=== PATIENT | male | born 1935 | race Caucasian/White ===

== ENCOUNTER 2017-07-13 23:05 | Inpatient (IN) | payer MEDICARE ==
[2017-07-13 23:48] LABS: BASOPHILE ABSOLUTE 0.1 Th/cumm (0-0.2); EOSINOPHILE ABSOLUTE 0.1 Th/cmm (0.1-0.4); HEMATOCRIT 32.3 % (41.0-60); HEMOGLOBIN 11.1 gm/dL (12-16); LYMPHOCYTE ABSOLUTE 1.7 Th/cmm (1.5-3.0); MEAN CELL VOLUME 87.1 fl (80-99); MEAN CORPUSCULAR HEMOGLOBIN 30.1 pg (27.0-31.0); MEAN CORPUSCULAR HGB CONC 34.5 pg (28.0-36.0); MEAN PLATELET VOLUME 6.8 fl; MONOCYTE ABSOLUTE 2.4 Th/cmm (0.3-1.0); NEUTROPHILE ABSOLUTE 10.4 Th/cmm (1.8-8.0); PLATELET COUNT 597 Th/cmm (150-400); RED CELL DISTRIBUTION WIDTH 15.2 % (11.5-20.0)
[2017-07-13 23:49] LABS: % LYMPHOCYTES 11.3 % (20.0-50.0); % NEUTROPHILS 71.3 % (40.0-80.0); WHITE BLOOD COUNT 14.7 Th/cmm (4.8-10.8)
[2017-07-13 23:50] LABS: % BASOPHILS 0.4 % (0.0-2.0)
--- NOTE | 2017-07-13 23:52 | ED Physician Chart ---
ED Chief Complaint/HPI - Patient Information Date Seen:: 07/13/17 Time Seen:: 23:15 Chief Complaint:: G-TUBE MALFUNCTIONING History of Present Illness:: THIS IS AN 81 YO CHRONICALLY MALE SENT FROM THE LONG-TERM BECAUSE OF G-TUBE PLACEMENT. THIS PATIENT HAS BEEN VOMITING AND CURRENT HAS SOME MILD ABDOMINAL DISTENTION. HE HAS PANCREATIC DISEASE. Allergies:: Allergies Allergy/AdvReac Type Severity Reaction Status Date / Time acetaminophen [From Vicodin] Allergy Verified 07/13/17 23:25 hydrocodone [From Vicodin] Allergy Verified 07/13/17 23:25 Penicillins [PCN] Allergy Verified 07/13/17 23:25 Vitals:: Vital Signs - 8 hr 07/13/17 23:05 Temp 98.2 F HR 145 RR 20 BP 103/60 O2 Sat % 97 Historian:: Patient, Family Member (SON), Medical Records Review:: Nurse's Note Reviewed ED Review of Systems - Review of Systems General/Constitutional: Fever, No chills, No weight loss, Weakness, No diaphoresis, No edema, No loss of appetite Skin: No skin lesions, No rash, No bruising Head: No headache, No light-headedness Eyes: No loss of vision, No pain, No diplopia ENT: No earache, No nasal drainage, No sore throat, No tinnitus Neck: No neck pain, No swelling, No thyromegaly, No stiffness, No mass noted Cardio Vascular: No chest pain, No palpitations, No PND, No orthopnea, No edema , other (FAST HEART RATE 152) Pulmonary: No SOB, No cough, No sputum, No wheezing GI: Nausea, Vomiting, No diarrhea, Pain, No melena, No hematochezia, No constipation, No hematemesis G/U: No dysuria, No frequency, No hematuria Musculoskeletal: No bone or joint pain, No back pain, No muscle pain Endocrine: No polyuria, No polydipsia Psychiatric: No prior psych history, No depression, No anxiety, No suicidal ideation Hematopoietic: No bruising, No lymphadenopathy Allergic/Immuno: No urticaria, No angioedema Neurological: No syncope, No focal symptoms, No weakness, No paresthesia, No headache, No seizure, No dizziness, No confusion, No vertigo ED Past Medical History - Past Medical History Obtainable: Yes Past Medical History: HTN, CVA/TIA, DVT/PE Family History: None Social History: Non Smoker, No Alcohol, No Drug Use, Care Facility Surgical History: PEG/GTube, other (AORTIC ANEURYSM SURGERY, ) Psychiatricy History: Dementia Family Medical History - Family Member Mother History Unknown: Yes Son Living Status: Still Living ED Physical Exam - Physical Examination General/Constitutional: Awake, Well-developed, well-nourished, Alert, No distress, GCS 15, Non-toxic appearing, Ambulatory Head: Atraumatic Eyes: Lids, conjuctiva normal, PERRL, EOMI Skin: Nl inspection, No rash, No skin lesions, No ecchymosis, Well hydrated, No lymphadenopathy ENMT: External ears, nose nl, Nasal exam nl, Lips, teeth, gums nl Neck: Nontender, Full ROM w/o pain, No JVD, No nuchal rigidity, No bruit, No mass, No stridor Respiratory: Nl effort/Exclusion, Clear to Auscultation, No Wheeze/Rhonchi/Rales Cardio Vascular: RRR, No murmur, gallop, rubs, NL S1 S2 Other Cardio Vascular comments:: TACHYCARDIA GI: No tenderness/rebounding/guarding (THERE IS DIFFUSE TENDERNESS OF THE ABDOMEN.), No organomegaly, No hernia, Normal BS's, Nondistended (HIS ABDOMEN IS SLIGHTLY DISTENDED WITH G-TUBE IN PLACE. ), No mass/bruits, No McBurney tenderness : No CVA tenderness Extremities: No tenderness or effusion, Full ROM, normal strength in all extremities, No edema, Normal digits & nails Other Extremities comments:: THERE IS GENERALIZE MUSCLE WASTING. Neuro/Psych: Alert/oriented, DTR's symmetric, Normal sensory exam, Normal motor strength, Judgement/insight normal, Mood normal, Normal gait, No focal deficits Misc: Normal back, No paraspinal tenderness ED Assessment - Assessment General Assessment: G-TUBE MALFUNCTIONING DEHYDRATION ELEVATED WHITE COUNT ED Septic Shock - . Is Septic Shock (SBP<90, OR Lactate>4 mmol\L) present?: No - <6hrs of presentation: Vital Signs: Vital Signs - 8 hr 07/13/17 23:05 Temp 98.2 F HR 145 RR 20 BP 103/60 O2 Sat % 97 ED Reassessment (Disposition) - Reassessment Reassessment Condition:: Improved - Diagnosis Diagnosis:: G-TUBE MALFUNCTIONING LEUCOCYTOSIS - Patient Disposition Discharge/Transfer:: Acute Care w/in this hosp Condition at Disposition:: Improved ED Discharge Plan - Patient Disposition Admit/Discharge/Transfer: Acute Care w/in this hosp
[2017-07-13] MEDS ORDERED: Sodium Chloride 0.9% 1,000 ML IV ONE (23:54)
[2017-07-13 23:55] LABS: INR 1.18 (0.5-1.4); PROTHROMBIN TIME (TEST) 12.4 SECONDS (9.5-11.5)
[2017-07-14 00:17] LABS: ANION GAP 10.6 (7.0-16.0); BUN - UREA NITROGEN 22 mg/dL (7-25); CARBON DIOXIDE 22.4 mEq/L (21.0-31.0); CHLORIDE 98 mEq/L (98-107); CREATININE - SERUM 0.5 mg/dL (0.7-1.3); GLUCOSE 96 mg/dL (70-105); SODIUM SERUM 127 mEq/L (136-145)
[2017-07-14 00:18] LABS: ALB/GLOB RATIO 0.5 (1.0-1.8); ALBUMIN 2.3 gm/dL (4.2-5.5); ALKALINE PHOSPHATASE 149 U/L (34-104); BILIRUBIN,TOTAL 0.4 mg/dL (0.3-1.0); CALCIUM SERUM 8.7 mg/dL (8.6-10.3); SGOT 47 U/L (13-39); SGPT/ALT 49 U/L (7-52); TOTAL PROTEIN,SERUM 6.6 gm/dL (6.0-8.3)
[2017-07-14] MEDS ORDERED: Lactated Ringer 1,000 ML IV ONE ×2 (00:36→01:32)
[2017-07-14] MEDS ORDERED: IOHEXOL 300mgI/mL 100 ML VIAL ONE (01:02)
[2017-07-14] MEDS ORDERED: Albuterol Nebulizer 2.5mg/3mL HHN PRN (01:33)
[2017-07-14] MEDS ORDERED: Sodium Chloride 0.9% 1,000 ML IV ONE (01:37)
[2017-07-14] MEDS ORDERED: Diltiazem 30 mg Tab GT SCH (01:40)
[2017-07-14] MEDS: Levofloxacin 750mg/150mL 750 MG/150 ML BAG IV SCH (03:05)
[2017-07-14 03:07] LABS: URINE MICROSCOPIC INDICATED? YES; URINE SOURCE FOLEY PORT
[2017-07-14 03:19] LABS: URINE BILIRUBIN NEGATIVE (NEGATIVE); URINE BLOOD MODERATE (NEGATIVE); URINE GLUCOSE (UA) NEGATIVE (NEGATIVE); URINE KETONE NEGATIVE (NEGATIVE); URINE LEUKOCYTE ESTERASE NEGATIVE (NEGATIVE); URINE NITRATE NEGATIVE (NEGATIVE); URINE PROTEIN TRACE mg/dL (NEGATIVE); URINE UROBILINOGEN 0.2 E.U./dL (0.2 - 1.0)
[2017-07-14 03:20] LABS: URINE CLARITY CLOUDY (CLEAR); URINE COLOR RED; URINE EPITHELIAL CELLS OCCASIONAL /lpf (FEW); URINE RBC 50-100 /hpf (0-5); URINE WBC 0-2 /hpf (0-5)
[2017-07-14 03:21] LABS: URINE BACTERIA FEW /hpf (NONE SEEN)
[2017-07-14] MEDS ORDERED: Diltiazem 5 mg/mL 5mL Vial IVP ONE (05:36)
[2017-07-14] MEDS ORDERED: Pneumococcal Vaccine 0.5 mL Vial IM ONE (06:04)
[2017-07-14] MEDS: Albuterol Nebulizer 2.5mg/3mL HHN SCH ×3 (06:41→18:30)
--- NOTE | 2017-07-14 08:54 | History and Physical ---
History of Present Illness - HPI Vital Signs: Last Vital Signs Temp 97.5 F 07/14/17 07:51 Pulse 618 07/14/17 08:01 Resp 18 07/14/17 07:51 BP 102/63 07/14/17 07:51 Pulse Ox 94 07/14/17 07:51 Family Medical History - Family Member Mother History Unknown: Yes Son History Unknown: Yes Living Status: Still Living - Medications Home Medications: Home Medication Medication Instructions Recorded Type Apixaban [Eliquis] 5 mg JT DAILY 07/14/17 History Calcium Carbonate/Vitamin D2 1 tab JT DAILY 07/14/17 History [Nature's Blend Oyster Shell Calcium D 250 mg-] Dextran 70/Hypromellose 1 each EACH EYE TID 07/14/17 History [Artificial Tears] Diltiazem HCl [Diltiazem 12Hr ER] 60 mg JT Q8HR 07/14/17 History Ferrous Sulfate 5 ml JT DAILY 07/14/17 History Hydralazine HCl 25 mg JT Q6HR 07/14/17 History Insulin Aspart Sliding Scale See Protocol SUBQ ACHS 07/14/17 History [NovoLOG INSULIN SLIDING SCALE] Levalbuterol HCl [Xopenex] 0.63 mg IH Q4HR PRN 07/14/17 History Magnesium Hydroxide [Milk of 30 ml JT DAILY 07/14/17 History Magnesia] Metoprolol Succinate 25 mg JT Q6HR 07/14/17 History Tramadol HCl [Ultram] 50 mg JT Q6HR PRN 07/14/17 History Vit C/Ascorbate Ca/Ascorb Sod 500 mg JT DAILY 07/14/17 History [Vitamin C 500 mg/15 ml Liquid] - Allergies Allergies/Adverse Reactions: Allergies Allergy/AdvReac Type Severity Reaction Status Date / Time acetaminophen [From Vicodin] Allergy Verified 07/13/17 23:25 hydrocodone [From Vicodin] Allergy Verified 07/13/17 23:25 Penicillins [PCN] Allergy Verified 07/13/17 23:25 - Lab Results All Lab Results last 24 hours: Laboratory Results - last 24 hr 07/14/17 07/14/17 02:10 02:50 Whole Bld Lactic Acid 2.19 H* Urine Source [place] Urine Color RED Urine Clarity CLOUDY Urine pH 7.0 Ur Specific [place] <= 1.005 Urine Protein TRACE Urine Glucose (UA) NEGATIVE Urine Ketones NEGATIVE Urine Blood MODERATE H Urine Nitrate NEGATIVE Urine Bilirubin NEGATIVE Urine Urobilinogen 0.2 Ur Leukocyte Esterase NEGATIVE Urine RBC 50-100 H Urine WBC 0-2 Ur Epithelial Cells OCCASIONAL Urine Bacteria FEW
--- NOTE | 2017-07-14 09:07 | General Progress Note ---
Subjective - Review of Systems Service Date: 07/14/17 Events since last encounter: had ruptured AAA repair [facility] 3 months ago had fever, pain both flanks CT scan possible abscess both flanks, GB sludge Plan: obtain op reports TAMY, blood culture, CT aspiration of suspected abscess Graft infection, if used for repair of AAA can be disastrous Objective - Results Result Diagrams: 07/13/17 23:30 07/13/17 23:30 Recent Labs: Laboratory Last Values WBC 14.7 Th/cmm (4.8-10.8) H 07/13/17 23:30 RBC 3.70 Mil/cmm (3.80-5.80) L 07/13/17 23:30 Hgb 11.1 gm/dL (12-16) L 07/13/17 23:30 Hct 32.3 % (41.0-60) L 07/13/17 23:30 MCV 87.1 fl (80-99) 07/13/17 23:30 MCH 30.1 pg (27.0-31.0) 07/13/17 23:30 MCHC Differential 34.5 pg (28.0-36.0) 07/13/17 23:30 RDW 15.2 % (11.5-20.0) 07/13/17 23:30 Plt Count 597 Th/cmm (150-400) H 07/13/17 23:30 MPV 6.8 fl 07/13/17 23:30 Neutrophils % 71.3 % (40.0-80.0) 07/13/17 23:30 Lymphocytes % 11.3 % (20.0-50.0) L 07/13/17 23:30 Monocytes % 16.0 % (2.0-10.0) H 07/13/17 23:30 Eosinophils % 1.0 % (0.0-5.0) 07/13/17 23:30 Basophils % 0.4 % (0.0-2.0) 07/13/17 23:30 PT 12.4 SECONDS (9.5-11.5) H 07/13/17 23:30 INR 1.18 (0.5-1.4) 07/13/17 23:30 PTT (Actin FS) 36.6 SECONDS (26.0-38.0) 07/13/17 23:30 Sodium 127 mEq/L (136-145) L 07/13/17 23:30 Potassium 4.0 mEq/L (3.5-5.1) 07/13/17 23:30 Chloride 98 mEq/L (98-107) 07/13/17 23:30 Carbon Dioxide 22.4 mEq/L (21.0-31.0) 07/13/17 23:30 Anion Gap 10.6 (7.0-16.0) 07/13/17 23:30 BUN 22 mg/dL (7-25) 07/13/17 23:30 Creatinine 0.5 mg/dL (0.7-1.3) L 07/13/17 23:30 Est GFR ( Amer) TNP 07/13/17 23:30 Est GFR (Non-Af Amer) TNP 07/13/17 23:30 BUN/Creatinine Ratio 44.0 07/13/17 23:30 Glucose 96 mg/dL (70-105) 07/13/17 23:30 Whole Bld Lactic Acid 2.19 mmol/L (0.60-1.99) H* 07/14/17 02:10 Calcium 8.7 mg/dL (8.6-10.3) 07/13/17 23:30 Total Bilirubin 0.4 mg/dL (0.3-1.0) 07/13/17 23:30 AST 47 U/L (13-39) H 07/13/17 23:30 ALT 49 U/L (7-52) 07/13/17 23:30 Alkaline Phosphatase 149 U/L (34-104) H 07/13/17 23:30 Troponin I 0.02 ng/mL (0.01-0.05) 07/13/17 23:30 Total Protein 6.6 gm/dL (6.0-8.3) 07/13/17 23:30 Albumin 2.3 gm/dL (4.2-5.5) L 07/13/17 23:30 Globulin 4.3 gm/dL 07/13/17 23:30 Albumin/Globulin Ratio 0.5 (1.0-1.8) L 07/13/17 23:30 Urine Source [place] 07/14/17 02:50 Urine Color RED 07/14/17 02:50 Urine Clarity CLOUDY (CLEAR) 07/14/17 02:50 Urine pH 7.0 (4.6 - 8.0) 07/14/17 02:50 Ur Specific [place] <= 1.005 (1.005-1.030) 07/14/17 02:50 Urine Protein TRACE mg/dL (NEGATIVE) 07/14/17 02:50 Urine Glucose (UA) NEGATIVE mg/dL (NEGATIVE) 07/14/17 02:50 Urine Ketones NEGATIVE mg/dL (NEGATIVE) 07/14/17 02:50 Urine Blood MODERATE (NEGATIVE) H 07/14/17 02:50 Urine Nitrate NEGATIVE (NEGATIVE) 07/14/17 02:50 Urine Bilirubin NEGATIVE (NEGATIVE) 07/14/17 02:50 Urine Urobilinogen 0.2 E.U./dL (0.2 - 1.0) 07/14/17 02:50 Ur Leukocyte Esterase NEGATIVE (NEGATIVE) 07/14/17 02:50 Urine RBC 50-100 /hpf (0-5) H 07/14/17 02:50 Urine WBC 0-2 /hpf (0-5) 07/14/17 02:50 Ur Epithelial Cells OCCASIONAL /lpf (FEW) 07/14/17 02:50 Urine Bacteria FEW /hpf (NONE SEEN) 07/14/17 02:50 - Physical Exam Vitals and I&O: Vital Signs Temp 97.5 F 07/14/17 07:51 Pulse 618 07/14/17 08:01 Resp 18 07/14/17 07:51 BP 102/63 07/14/17 07:51 Pulse Ox 94 07/14/17 07:51 Intake & Output 07/13/17 07/14/17 07/14/17 18:59 06:59 18:59 Intake Total 2200 Balance 2200 Intake: Intake, IV Amount 2200 Levofloxacin 750mg/150mL 150 750 mg In 150 ml @ 100 mls/hr IV Q24HR [facility] Rx#: [id number] Active Medications: Current Medications Acetaminophen (Tylenol) 650 mg PO Q6H PRN PRN Reason: HEADACHE/TEMP ABOVE 100F Stop: 09/12/17 01:29 Albuterol Sulfate (Albuterol 2.5mg/3ml Neb Ud) 2.5 mg HHN Q6HRT [facility] Stop: 09/12/17 06:59 Last Admin: 07/14/17 06:41 Dose: 2.5 mg Albuterol Sulfate (Albuterol 2.5mg/3ml Neb Ud) 2.5 mg HHN Q6HRT PRN PRN Reason: sob Stop: 09/12/17 06:59 Docusate Sodium (Colace) 100 mg PO BID PRN PRN Reason: Constipation Stop: 09/12/17 01:30 Levofloxacin (Levaquin Pb) 750 mg in 150 mls @ 100 mls/hr IV Q24HR [facility] Stop: 09/12/17 01:44 Last Infusion: 07/14/17 04:35 Dose: Infused Amiodarone HCl 450 mg/ (Dextrose) 259 mls @ 0 mls/hr IV TITR [facility]; Titrate PRN Reason: Protocol Stop: 09/12/17 07:14 Ondansetron HCl (Zofran) 4 mg IVP Q6H PRN PRN Reason: Nausea / Vomiting Stop: 09/12/17 01:30
--- NOTE | 2017-07-14 09:22 | Diagnostic Imaging Report ---
CT abdomen and pelvis with intravenous contrast Indication: Abdominal pain Comparison: None, Technique: Axial images were obtained from the lung bases to the bilateral proximal femurs with IV contrast. Coronal reconstructions were made. total DLP: 560, CTDI10.4 FINDINGS: There is a moderate-sized left effusion and small right effusion with bibasal passive atelectatic and consolidative changes. There is mild fluid distention of the esophagus with small hiatal hernia noted. Moderate generalized ascites is noted. No focal hepatic lesions. Distended gallbladder is seen with sludge. No focal splenic lesions. Multiple pancreatic gland calcifications are noted there are small pockets of gas seen along the anterior aspect of the pancreas, location difficult to determine. Percutaneous gastric feeding tube is noted with tip terminating along the jejunal portion. No focal adrenal lesions. There is a 6.1 x 4 cm right renal cyst. There is also moderate to severe right hydronephrosis with probable additional adjacent renal cysts seen along the medial aspect measuring 4.5 cm. Right hydroureter is noted. There is marked enlargement of the right psoas muscle with abnormal areas of low density. This area measures up to 7.2 cm craniocaudal x 6 cm transverse demonstrates irregularity surrounding inflammatory changes. Additional collection is seen more inferiorly extending to the right iliac this muscle measuring 7.4 x 4 cm. Diverticulosis is noted. Inflammatory changes seen in the pelvis with nonspecific fluid-filled loops of small bowel. An infrarenal IVC filter is noted. Diffuse atherosclerotic vascular disease is noted with areas of aneurysmal dilatation of the infrarenal abdominal aorta measuring up to 4.5 x 3.6 cm. Anasarca is noted. Diffuse Degenerative changes of the spine and pelvis are noted. The appendix is not well-visualized. Small fat-containing left inguinal hernia is noted. IMPRESSION: Moderate generalized abdominal and pelvic ascites. Right-sided moderate to severe hydronephrosis. This may be secondary to enlargement of the right psoas muscle possibly psoas abscess with this area measuring 7.2 x 6 cm. There is also additional heterogeneous area probable additional abscess along the right pelvic region along the right iliac is muscle measuring 7.4 x 4 cm. This may extend to the more superior fluid collection. Other less likely etiologies would include a hematoma. Percutaneous gastric feeding tube with tip of the catheter within the jejunum. Pancreatic atrophy and calcifications. Small pockets of gas are seen anterior to pancreas. Findings are indeterminate and are probably within the adjacent small bowel loops. These are less likely extraluminal, however, clinical correlation and follow-up is recommended. Diffuse atherosclerosis with aneurysm dilatation of the infrarenal dominator measuring up to 4.5 x 2.8 cm. Diverticulosis. Gallbladder debris and possible small gallstones. Distended gallbladder is also noted. Ultrasound would further clarify. Generalized inflammatory changes throughout the mesentery which may be related to patient's abdominal ascites. Anasarca Moderate left effusion and small right effusion and bibasilar passive atelectatic and consolidative changes. IVC filter noted. Right renal cysts. Small fat-containing left inguinal hernia.
[2017-07-14] MEDS ORDERED: Morphine Sulfate 4 mg/mL 1mL Syr IVP PRN (09:37)
--- NOTE | 2017-07-14 10:43 | Consultation ---
DATE OF CONSULTATION: 07/14/2017 SURGICAL CONSULT REFERRING PHYSICIAN: Dr. Coyle REASON FOR CONSULTATION: Abdominal pain. Thank you for referring this patient to me. This is an 81-year-old male who underwent repair of possible ruptured abdominal aortic aneurysm 3 months ago at [facility]. The anuerysm was fresected, patient did not wake up for about a week postop. He vomited and could not swallow and has a G-tube in place. He started having pain in both flanks several days ago and developed a fever on admission. PRIOR HISTORY: He claims he took medication for hypertension, but not for diabetes or high cholesterol. He quit smoking in high school. LABORATORY STUDIES: On this admission, WBC was 14,700 with hemoglobin of 11.1, platelet count is normal. PT was 12.4. The lactic acid is elevated to 2.32. A CT scan of the abdomen shows a possible abscess and fluid collection in both flanks measuring 6 x 7 x 5.7 x 9.7 on the right side and 8 x 2 x 6.2 x 2.2 on the left side, iliopsoas region. There is also sludge in the gallbladder. PHYSICAL EXAMINATION: Scar is well-healed in the midline. There is tenderness in both flanks. Femoral pulses are strong. IMPRESSION: 1. Possible postop abscess, iliopsoas region. 2. Possible infection of the graft for the AAA repair. 3. Gallbladder sludge. 4. Dysphagia, etiology? RECOMMENDATIONS: Suggest ID consult. We will do blood culture and send the patient for CT aspiration of the abscess or fluid collection in both flanks. The patient is warned about the dire consequences of an infected graft if this was used. The patient has an IVC filter as well noted on the CAT scan. JOB# [id number] [id number]
[2017-07-14] MEDS ORDERED: Potassium Chloride 20 mEq ER Tab PO PRN (10:57)
[2017-07-14] MEDS ORDERED: Sodium Chloride 0.9% 1,000 ML IV SCH (11:00)
[2017-07-14] MEDS: D5-0.9%NS 1,000 ML IV SCH ×2 (11:20→21:22)
[2017-07-14] MEDS: Diltiazem 30 mg Tab JT SCH ×2 (11:44→20:31)
[2017-07-14] MEDS: INSULIN ASPART SLIDING SCALE 100 UNITS/ML UNIT SUBQ SCH ×3 (11:47→20:32)
[2017-07-14] MEDS ORDERED: DILTIAZEM HCL 60 MG JT SCH (13:00)
[2017-07-14] MEDS ORDERED: Non-Formulary Item 1 EA (Dextran 70/Hypromellose [Artificial Tears] 1 EACH) EACH EYE SCH (14:00)
[2017-07-14] MEDS: Polyvinyl Alcohol Ophth Soln 15 mL Bottle EACH EYE SCH ×2 (14:54→20:31)
--- NOTE | 2017-07-14 15:33 | History & Physical ---
ADMIT DATE: 07/14/2017 CHIEF COMPLAINT: Abdominal pain with associated nausea and vomiting. HISTORY OF PRESENT ILLNESS: This is an 81-year-old gentleman who presented from [facility] with a past medical history of dysphagia, pancreatic pseudocyst, GE junction obstruction, presented to the hospital with complaint of abdominal pain, nausea and vomiting. The patient is currently a jail patient at [facility], who started to experience abdominal pain with associated nausea and vomiting. A KUB was ordered and was negative at that time. Over the last couple days, the vomiting became so severe that he was unable to tolerate tube feeds and was sent to the hospital for further workup. Approximately one month ago, the patient was admitted to the [facility] for a ruptured abdominal aortic aneurysm. The patient had an EGD performed that revealed a Schatzki's ring and underwent endoscopic therapy to remove the ring. The patient tolerated procedure well without complication. He has an extensive history of pancreatic pseudocyst and dysphagia. He is a long-term patient at [facility]. [facility] has found approximately 2 months ago that he had necrotizing pancreatitis and an NG tube was placed at that time. He had a PEG tube that was removed and a G-tube was placed. The patient started his tube feeds and he was able to tolerate the Peptamen without complication. However, over the last several days, the patient has been unable to do so. 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 PAST SURGICAL HISTORY: G-tube placement, endoscopic removal of Schatzki ring as well as endoscopic removal of pancreatic pseudocyst and repair of the abdominal aortic aneurysm. MEDICATIONS: Reviewed and reconciled. ALLERGIES: PENICILLIN, RASH. TYLENOL AND HYDROCODONE, rash. FAMILY HISTORY: Unremarkable. SOCIAL HISTORY: Denies tobacco, drugs, alcohol. Currently, is living at [facility]. REVIEW OF SYSTEMS: GENERAL: Denies fevers, chills, night sweats. HEENT: Admits to difficulty swallowing, painful swallowing, and no decreased vision. CARDIOVASCULAR: Denies chest pain, shortness of breath, or palpitations. RESPIRATORY: Denies chest pain, shortness of breath, or cough. ABDOMEN: Abdominal pain with associated nausea and vomiting. MUSCULOSKELETAL: Muscle strength testing, bilateral upper and lower extremities, 3/5. SKIN: No rashes or open wounds. The patient appears cachectic. PSYCHIATRIC: No psychosis or hallucinations. PHYSICAL EXAMINATION: VITAL SIGNS: Pulse is 145, blood pressure is 125/75, respirations 18, temperature is 97.6. GENERAL: NAD, appears to be cachectic and very weak. HEENT: PERRLA, EOMI. NECK: Supple. Trachea midline. CARDIOVASCULAR: Regular rate and rhythm. LUNGS: Decreased breath sounds bilaterally with intermittent rhonchi. No wheezing or rales. ABDOMEN: Soft, mildly distended abdomen. G-tube is intact. Hypoactive bowel sounds. SKIN: No rash or open wounds. MUSCULOSKELETAL: Muscle strength testing 4/5. PSYCHIATRIC: No psychosis or hallucinations. LABORATORY DATA: White blood cell count is 14.7, hemoglobin 11.1. The sodium is 127. Lactic acid is 2.3 and followup is 2.1. Albumin is 2.3. ASSESSMENT: Possible abdominal abscess 7.4 x 4 along the right iliac muscle, bilateral pleural effusions, small hiatal hernia, gallbladder with sludge, multiple pancreatic calcifications and pseudocyst. There is a right renal cyst 6.1 x 4 with severe right-sided hydronephrosis and right hydroureter. IVC filter in place, diverticulosis, SVT, vasomotor nephropathy. PLAN: Admit to the ICU. Dr. Elizalde has been consulted. Hold tube feeds. The patient was started on amiodarone drip due to SVT. IV Levaquin and vancomycin have been started. Zofran for nausea or vomiting, morphine for severe pain and bronchodilators as needed. A urinalysis was negative. A chest x-ray is currently pending. Dr. Elizalde is waiting for the prior surgical records to be sent him prior to doing any type of surgical procedure. High rate IV fluids due to dehydration. JOB# [id number]
[2017-07-14] MEDS ORDERED: Metoprolol tartrate 1 mg/ml 5mL Amp IV SCH (17:30)
[2017-07-14] MEDS ORDERED: Metoprolol tartrate 1 mg/ml 5mL Amp IV ONE ×2 (17:39→18:15)
[2017-07-15] MEDS: Albuterol Nebulizer 2.5mg/3mL HHN SCH ×4 (01:13→18:48)
[2017-07-15] MEDS ORDERED: Diltiazem 5 mg/mL 5mL Vial IVP ONE (01:34)
[2017-07-15] MEDS ORDERED: Metoprolol tartrate 1 mg/ml 5mL Amp IV PRN (02:20)
--- NOTE | 2017-07-15 03:02 | Consultation ---
DATE OF CONSULTATION: 07/14/2017 INPATIENT GASTROINTESTINAL CONSULTATION REFERRING PHYSICIAN: Dr. Coyle. REASON FOR CONSULTATION: Malfunctioning G-tube, dysphagia. HISTORY OF PRESENT ILLNESS: This is an 81-year-old male sent in from a residential because his G-tube has been clogged and not working. The patient is not a very reliable historian. He denies having any GI bleeding, melena, hematochezia, hematemesis, or coffee ground emesis. He denies having any nausea, vomiting, although the records in the ER suggested he has some vomiting. He denies having abdominal pain. PAST MEDICAL HISTORY: Hypertension, stroke, TIA, DVT, PE, dementia, abdominal aortic aneurysm. PAST SURGICAL HISTORY: PEG tube placement and aortic aneurysm surgery. FAMILY HISTORY: Noncontributory. SOCIAL HISTORY: Resident of skilled facility. ALLERGIES: ACETAMINOPHEN, HYDROCODONE, PENICILLIN. CURRENT MEDICATIONS: Tylenol, amiodarone, Colace, Levaquin, Zofran. REVIEW OF SYSTEMS: Ten point review of system was very limited because of the patient is a poor historian. PHYSICAL EXAMINATION: VITAL SIGNS: Temperature 97.5, breathing 18, pulse of 150, blood pressure 102/63, satting 94%. GENERAL: No apparent distress, well-developed, well-nourished. Eyes are anicteric. Normal conjunctivae. HEENT: Normocephalic, atraumatic. Moist mucous membranes. NECK: Soft, supple. CHEST: Clear, normal effort. CARDIOVASCULAR: Regular rate and rhythm. ABDOMEN: Soft, nontender, nondistended with G-tube with old scars. SKIN: Warm, dry. EXTREMITIES: Reveal no cyanosis. PSYCHOLOGICAL: Awake. LABORATORY DATA: Show white count 14.7, hemoglobin 11.1, platelets 597. INR is 1.18. Total bilirubin 0.4, AST 47, ALT 49, alkaline phosphatase 149. IMPRESSION: An 81-year-old male with malfunctioning G-tube and dysphagia, feeding tube may need to be replaced, it was confusing. The patient states that he thinks that it is the J-tube, although this does not look typical of that. Imaging studies can be done to determine the location of this tube whether it is in the stomach or in the small bowel. Once it is as determined he can have the G-tube removed and replaced. His LFTs are also elevated of unclear etiology. CT scan can also be helpful looking at the liver as well. PLAN: 1. CT abdomen and pelvis. 2. Follow LFTs. 3. We will consider the routes to change the G-tube. 4. Get records of the G-tube placement from [facility]. Thank you for allowing me to participate. Please call me if any questions. JOB# [id number]
--- NOTE | 2017-07-15 03:17 | Consultation ---
DATE OF CONSULTATION: 07/14/2017 HISTORY OF PRESENT ILLNESS: This 81-year-old male was seen and examined at the courtesy of Dr. Coyle. The patient was admitted here with fast heart rate and sepsis, was evaluated in emergency room, was found to have lactic acidosis, leukocytosis, and hyponatremia. He also had G-tube malfunction. He also has an abdominal aortic aneurysm. He has been having supraventricular tachycardia, heart rate about 150 beats per minute. Apparently, some Cardizem was given to him with no effect. Lopressor was given 5 mg IV with transient reduction in the heart rate. Probably, it is regular QRS complexes, probably it is atrial flutter with 2:1 AV conduction, was in sinus tachycardia, but I doubt it. PAST MEDICAL HISTORY: Not much available from the patient. FAMILY HISTORY, SOCIAL HISTORY, AND REVIEW OF SYSTEMS: Not much available from the patient. On direct questioning him, the patient did not complain of any chest pain and no shortness of breath, no history of cough, no history of fever. No history of hemoptysis. PHYSICAL EXAMINATION: VITAL SIGNS: Heart rate is about 150, blood pressure is about 124/70. SKIN: Normal. HEENT: Head: Normocephalic. Eyes: Conjunctivae were pink. There is no icterus in the eyes. Pupils equally reacting to light. NECK: There was no increased jugular venous distention, no thyromegaly, no lymphadenopathy. Carotids equal on both sides. CHEST: Bilaterally symmetrical, moved well with respiration. Respiratory movements equal on both sides. Trachea is central. There is note to percussion. Breath sounds: Few basilar rales. Diminished air entry at the bases. CARDIOVASCULAR SYSTEM: PMI not well localized and no pulsation or thrill. No parasternal heave. S1 normal, S2 physiologic. There was no S3, no rub. ABDOMEN: Soft, bowel sounds present. EXTREMITIES: No calf tenderness. DATA: The patient had a CT of the abdomen and pelvis, which reveals finding of likely present abscess collection. Hematoma is another possibility. Bilateral pleural effusion, greater on the left. Abdominal aortic aneurysm, 4.5 cm. Atherosclerosis of abdominal aorta and iliac arteries. Moderate pelvic ascites, cirrhosis of liver. Lactic acid was 2.32. WBC count was 14.7, hemoglobin 11.1, hematocrit 32.3, platelet count was 597. INR was 1.18. Troponin was 0.02, sodium 127, potassium 4.0, chloride 98, CO2 22.4, BUN 96, creatinine 0.5, BUN 22. IMPRESSION: 1. Supraventricular tachyarrhythmia, probably atrial flutter with 2:1 atrioventricular conduction versus sinus tachycardia, but not sure about it, sepsis, lactic acidosis, possible abdominal abscess, G-tube malfunction, leukocytosis, hyponatremia, and abdominal aortic aneurysm. Apparently, the patient is on amiodarone drip. Cardizem was given before, no effect. Lopressor was given. We will try adenosine and we will also try Lanoxin and Lopressor again. In the meantime, we will get repeat troponin in a.m., EKG, echocardiogram, lipid profile, thyroid profile. Continue IV fluids. JOB# [id number]
[2017-07-15] MEDS: Diltiazem 30 mg Tab JT SCH ×2 (04:45→10:58)
[2017-07-15 04:47] LABS: HEMATOCRIT 30.4 % (41.0-60); HEMOGLOBIN 10.2 gm/dL (12-16); MEAN CELL VOLUME 88.1 fl (80-99); MEAN CORPUSCULAR HEMOGLOBIN 29.7 pg (27.0-31.0); MEAN CORPUSCULAR HGB CONC 33.7 pg (28.0-36.0); MEAN PLATELET VOLUME 6.9 fl; PLATELET COUNT 533 Th/cmm (150-400); RED BLOOD COUNT 3.45 Mil/cmm (3.80-5.80); RED CELL DISTRIBUTION WIDTH 15.3 % (11.5-20.0)
[2017-07-15 05:03] LABS: MANUAL DIFF REQUIRED? YES; WHITE BLOOD COUNT 14.1 Th/cmm (4.8-10.8)
[2017-07-15 05:13] LABS: ANION GAP 10.6 (7.0-16.0); BUN - UREA NITROGEN 16 mg/dL (7-25); CALCIUM SERUM 8.1 mg/dL (8.6-10.3); CARBON DIOXIDE 20.1 mEq/L (21.0-31.0); CHLORIDE 103 mEq/L (98-107); CHOLESTEROL 77 mg/dL (<200); CREATININE - SERUM 0.5 mg/dL (0.7-1.3); GLUCOSE 91 mg/dL (70-105); HDL -HIGH DENSITY LIPOPROTEIN 15 mg/dL (23-92); POTASSIUM SERUM 3.7 mEq/L (3.5-5.1); SODIUM SERUM 130 mEq/L (136-145); TRIGLYCERIDES 93 mg/dL (<150)
[2017-07-15] MEDS: Levofloxacin 750mg/150mL 750 MG/150 ML BAG IV SCH (05:39)
[2017-07-15] MEDS ORDERED: Non-Formulary Item 1 EA (Metoprolol Succinate [Metoprolol Succinate] 25 MG) JT SCH (06:00)
[2017-07-15 07:08] LABS: BAND NEUTROPHILE 7 % (0-10); LYMPHOCYTE 11 % (20-50); MONOCYTE 7 % (2-10); NEUTROPHILS 73 % (40-80); TOTAL CELLS COUNTED 100
[2017-07-15 07:09] LABS: EOSINOPHIL 2 % (0-5)
[2017-07-15] MEDS ORDERED: Albuterol Nebulizer 2.5mg/3mL HHN PRN (07:22)
[2017-07-15] MEDS: INSULIN ASPART SLIDING SCALE 100 UNITS/ML UNIT SUBQ SCH ×3 (07:34→16:43)
[2017-07-15] MEDS ORDERED: [UNRECOGNIZED DRUG - OTHER] JT SCH (09:00)
[2017-07-15] MEDS ORDERED: Magnesium Hydroxide (MOM) 30 mL UDC JT SCH (09:00)
[2017-07-15] MEDS ORDERED: CALCIUM CARBONATE JT SCH (09:00)
[2017-07-15] MEDS ORDERED: Lactobacillus Rhamnosus GG 15 Billion CFU CAP.SPRINK PO SCH (09:00)
[2017-07-15] MEDS ORDERED: Non-Formulary Item 1 EA (Vit C/Ascorbate Ca/Ascorb Sod [Vitamin C 500 Mg/15 Ml Liquid] 500 JT SCH (09:00)
[2017-07-15] MEDS ORDERED: Ferrous Sulfate 300 MG/5 ML UDC PO SCH (09:00)
[2017-07-15] MEDS ORDERED: FERROUS SULFATE JT SCH (09:00)
[2017-07-15] MEDS ORDERED: ERGOCALCIFEROL JT SCH (09:00)
[2017-07-15] MEDS: Polyvinyl Alcohol Ophth Soln 15 mL Bottle EACH EYE SCH ×3 (10:00→21:51)
--- NOTE | 2017-07-15 11:25 | Diagnostic Imaging Report ---
Portable chest x-ray HISTORY: Cough Heart size is difficult to assess with portable technique in a poor inspiration. Increased density seen in the left lower hemithorax suggesting a pleural effusion. Underlying pulmonary parenchymal pathology cannot be excluded. IMPRESSION: 1. Findings consistent with a left pleural effusion
[2017-07-15] MEDS: D5-0.9%NS 1,000 ML IV SCH (12:36)
--- NOTE | 2017-07-15 12:57 | GI Progress Note ---
Subjective - Review of Systems Subjective: NO EVENTS Objective - Results Result Diagrams: 07/15/17 00:43 07/15/17 00:43 Recent Labs: Laboratory Last Values WBC 14.1 Th/cmm (4.8-10.8) H 07/15/17 00:43 RBC 3.45 Mil/cmm (3.80-5.80) L 07/15/17 00:43 Hgb 10.2 gm/dL (12-16) L 07/15/17 00:43 Hct 30.4 % (41.0-60) L 07/15/17 00:43 MCV 88.1 fl (80-99) 07/15/17 00:43 MCH 29.7 pg (27.0-31.0) 07/15/17 00:43 MCHC Differential 33.7 pg (28.0-36.0) 07/15/17 00:43 RDW 15.3 % (11.5-20.0) 07/15/17 00:43 Plt Count 533 Th/cmm (150-400) H 07/15/17 00:43 MPV 6.9 fl 07/15/17 00:43 Neutrophils % 71.3 % (40.0-80.0) 07/13/17 23:30 Band Neutrophils % 7 % (0-10) 07/15/17 00:43 Lymphocytes % 11.3 % (20.0-50.0) L 07/13/17 23:30 Monocytes % 16.0 % (2.0-10.0) H 07/13/17 23:30 Eosinophils % 1.0 % (0.0-5.0) 07/13/17 23:30 Basophils % 0.4 % (0.0-2.0) 07/13/17 23:30 Neutrophils (Manual) 73 % (40-80) 07/15/17 00:43 Lymphocytes 11 % (20-50) L 07/15/17 00:43 Monocytes 7 % (2-10) 07/15/17 00:43 Eosinophils 2 % (0-5) 07/15/17 00:43 PT 12.4 SECONDS (9.5-11.5) H 07/13/17 23:30 INR 1.18 (0.5-1.4) 07/13/17 23:30 PTT (Actin FS) 36.6 SECONDS (26.0-38.0) 07/13/17 23:30 Sodium 130 mEq/L (136-145) L 07/15/17 00:43 Potassium 3.7 mEq/L (3.5-5.1) 07/15/17 00:43 Chloride 103 mEq/L (98-107) 07/15/17 00:43 Carbon Dioxide 20.1 mEq/L (21.0-31.0) L 07/15/17 00:43 Anion Gap 10.6 (7.0-16.0) 07/15/17 00:43 BUN 16 mg/dL (7-25) 07/15/17 00:43 Creatinine 0.5 mg/dL (0.7-1.3) L 07/15/17 00:43 Est GFR ( Amer) TNP 07/15/17 00:43 Est GFR (Non-Af Amer) TNP 07/15/17 00:43 BUN/Creatinine Ratio 32.0 07/15/17 00:43 Glucose 91 mg/dL (70-105) 07/15/17 00:43 POC Glucose 93 MG/DL (70 - 105) 07/15/17 12:38 Whole Bld Lactic Acid 2.19 mmol/L (0.60-1.99) H* 07/14/17 02:10 Calcium 8.1 mg/dL (8.6-10.3) L 07/15/17 00:43 Total Bilirubin 0.4 mg/dL (0.3-1.0) 07/13/17 23:30 AST 47 U/L (13-39) H 07/13/17 23:30 ALT 49 U/L (7-52) 07/13/17 23:30 Alkaline Phosphatase 149 U/L (34-104) H 07/13/17 23:30 Troponin I 0.02 ng/mL (0.01-0.05) 07/13/17 23:30 Total Protein 6.6 gm/dL (6.0-8.3) 07/13/17 23:30 Albumin 2.3 gm/dL (4.2-5.5) L 07/13/17 23:30 Globulin 4.3 gm/dL 07/13/17 23:30 Albumin/Globulin Ratio 0.5 (1.0-1.8) L 07/13/17 23:30 Triglycerides 93 mg/dL (<150) 07/15/17 00:43 Cholesterol 77 mg/dL (<200) 07/15/17 00:43 LDL Cholesterol Direct 46 mg/dL (75-193) L 07/15/17 00:43 HDL Cholesterol 15 mg/dL (23-92) L 07/15/17 00:43 TSH 0.89 uIU/ml (0.34-5.60) 07/15/17 00:43 Urine Source CHANG PORT 07/14/17 02:50 Urine Color RED 07/14/17 02:50 Urine Clarity CLOUDY (CLEAR) 07/14/17 02:50 Urine pH 7.0 (4.6 - 8.0) 07/14/17 02:50 Ur Specific [place] <= 1.005 (1.005-1.030) 07/14/17 02:50 Urine Protein TRACE mg/dL (NEGATIVE) 07/14/17 02:50 Urine Glucose (UA) NEGATIVE mg/dL (NEGATIVE) 07/14/17 02:50 Urine Ketones NEGATIVE mg/dL (NEGATIVE) 07/14/17 02:50 Urine Blood MODERATE (NEGATIVE) H 07/14/17 02:50 Urine Nitrate NEGATIVE (NEGATIVE) 07/14/17 02:50 Urine Bilirubin NEGATIVE (NEGATIVE) 07/14/17 02:50 Urine Urobilinogen 0.2 E.U./dL (0.2 - 1.0) 07/14/17 02:50 Ur Leukocyte Esterase NEGATIVE (NEGATIVE) 07/14/17 02:50 Urine RBC 50-100 /hpf (0-5) H 07/14/17 02:50 Urine WBC 0-2 /hpf (0-5) 07/14/17 02:50 Ur Epithelial Cells OCCASIONAL /lpf (FEW) 07/14/17 02:50 Urine Bacteria FEW /hpf (NONE SEEN) 07/14/17 02:50 Vancomycin Trough 11.5 ug/mL (5-10) H 07/15/17 11:45 - Physical Exam Vitals and I&O: Vital Signs Temp 98.0 F 07/15/17 08:00 Pulse 82 07/15/17 12:15 Resp 20 07/15/17 12:15 BP 131/73 07/15/17 11:45 Pulse Ox 100 05/14/18 12:15 Intake & Output 07/14/17 07/15/17 07/15/17 18:59 06:59 18:59 Intake Total 1612.00 2250 150 Output Total 450 Balance 1612.00 1800 150 Weight (lbs) 75.659 kg Intake: Intake, IV Amount 1612.00 2250 150 Amiodarone 450 mg In 259.00 Dextrose 5% 250 ml @ Titrate IV TITR [facility] Rx#: [id number] D5-0.9%Ns 1,000 ml @ 125 2000 mls/hr IV .Q8H [facility] Rx#: [id number] Levofloxacin 750mg/150mL 150 750 mg In 150 ml @ 100 mls/hr IV Q24HR [facility] Rx#: [id number] Vancomycin HCl 1 gm In 250 250 Sodium Chloride 0.9% 250 ml @ 165 mls/hr IV Q12H [facility] Rx#:[id number] Output: Urine 450 Other: # Voids 2 # Bowel Movements 0 Weight Source Bedscale Active Medications: Current Medications Acetaminophen (Tylenol) 650 mg PO Q6H PRN PRN Reason: HEADACHE/TEMP ABOVE 100F Stop: 09/12/17 01:29 Albuterol Sulfate (Albuterol 2.5mg/3ml Neb Ud) 2.5 mg HHN Q6HRT [facility] Stop: 09/12/17 06:59 Last Admin: 07/15/17 12:15 Dose: 2.5 mg Albuterol Sulfate (Albuterol 2.5mg/3ml Neb Ud) 2.5 mg HHN Q6HRT PRN PRN Reason: sob Stop: 09/12/17 06:59 Albuterol Sulfate (Albuterol 2.5mg/3ml Neb Ud) 1.25 mg HHN Q4HRT PRN PRN Reason: Shortness of Breath Stop: 09/13/17 07:21 Artificial Tears (Artificial Tears Ophth Soln) 1 drop EACH EYE TID [facility] Stop: 09/12/17 13:59 Last Admin: 07/15/17 10:00 Dose: 1 drop Ascorbic Acid (Vitamin C) 500 mg JT DAILY [facility] Stop: 09/13/17 08:59 Last Admin: 07/15/17 08:29 Dose: Not Given Calcium Carbonate (Calcium Carb) 600 mg PO DAILY [facility] Stop: 09/13/17 08:59 Last Admin: 07/15/17 08:29 Dose: Not Given Diltiazem HCl (Cardizem) 60 mg JT Q8H [facility] Stop: 09/12/17 11:44 Last Admin: 07/15/17 10:58 Dose: Not Given Docusate Sodium (Colace) 100 mg PO BID PRN PRN Reason: Constipation Stop: 09/12/17 01:30 Docusate Sodium (Colace) 100 mg PO BID PRN PRN Reason: Constipation Stop: 09/12/17 10:56 Ferrous Sulfate (Iron) 300 mg PO DAILY [facility] Stop: 09/13/17 08:59 Last Admin: 07/15/17 08:30 Dose: Not Given Hydralazine HCl (Apresoline) 25 mg JT Q6HR [facility] Stop: 09/12/17 11:59 Last Admin: 07/15/17 12:41 Dose: Not Given Levofloxacin (Levaquin Pb) 750 mg in 150 mls @ 100 mls/hr IV Q24HR [facility] Stop: 09/12/17 01:44 Last Infusion: 07/15/17 07:10 Dose: Infused Dextrose/Sodium Chloride (D5-0.9%Ns) 1,000 mls @ 125 mls/hr IV .Q8H [facility] Stop: 09/12/17 11:14 Last Admin: 07/15/17 12:36 Dose: 125 mls/hr Vancomycin HCl 1 gm/ Sodium (Chloride) 250 mls @ 165 mls/hr IV Q12H [facility] Stop: 09/12/17 11:59 Last Admin: 07/15/17 12:41 Dose: 165 mls/hr Insulin Aspart (Novolog Insulin Sliding Scale) 0 units SUBQ ACHS [facility] PRN Reason: Protocol Stop: 09/12/17 11:29 Last Admin: 07/15/17 12:40 Dose: Not Given Ketorolac Tromethamine (Toradol) 30 mg IVP Q6HR PRN PRN Reason: Fever > 101 Stop: 09/12/17 10:56 Lactobacillus Rhamnosus (Culturelle 15b) 1 each PO DAILY [facility] Stop: 09/13/17 08:59 Last Admin: 07/15/17 08:30 Dose: Not Given Magnesium Hydroxide (Milk Of Magnesia) 30 ml JT DAILY [facility] Stop: 09/13/17 08:59 Last Admin: 07/15/17 08:30 Dose: Not Given Metoprolol Tartrate (Lopressor) 25 mg JT DAILY [facility] Stop: 09/13/17 08:59 Last Admin: 07/15/17 08:30 Dose: Not Given Metoprolol Tartrate (Lopressor) 5 mg IV Q4HR PRN PRN Reason: Tachycardia Stop: 09/13/17 02:19 Miscellaneous (Vancomycin Iv Per Pharmacy) 1 ea [facility] PRN PRN PRN Reason: PROTOCOL Stop: 09/12/17 10:55 Morphine Sulfate (Morphine) 2 mg IVP Q4HR PRN PRN Reason: Abdominal Pain Stop: 09/12/17 09:36 Last Admin: 07/14/17 10:00 Dose: 2 mg Ondansetron HCl (Zofran) 4 mg IVP Q6H PRN PRN Reason: Nausea / Vomiting Stop: 09/12/17 01:30 Ondansetron HCl (Zofran) 4 mg IVP Q6H PRN PRN Reason: Nausea / Vomiting Stop: 09/12/17 10:56 Potassium Chloride (Klor-Con) 40 meq PO DAILY PRN PRN Reason: k level less than 3.5 Stop: 09/12/17 10:56 Tramadol HCl (Ultram) 50 mg JT Q6HR PRN PRN Reason: Pain (Moderate) Stop: 09/12/17 11:05 Assessment/Plan - Assessment Assessment: 81 YO MALE WITH DYSPHAGIA AND MALFUNCTION GJ TUBE CT SHOWED GALLSTONES, PANC CALCIFICATIONS, PSOAS ABSCESS, HYDRONEPHROSIS, ASCITES 1.PT BEING TRANSFERRED TO HIGHER LEVEL OF CARE 2.WILL NEED GJ TUBE CHANGE ONCE STABILIZED AT RECEIVING HOSPITAL 3.WILL ALSO NEED PARACENTESIS 4.CONT SUPP CARE 5.SURGERY INPUT FOR GALLSTONES, PSOAS ABSCESS
--- NOTE | 2017-07-15 16:59 | General Progress Note ---
Subjective - Review of Systems Service Date: 07/15/17 Events since last encounter: additional medical record from [facility] - had AAA repair with graft on04/18/17 Was at [facility] onb 06/04/17 with pancreatitis and cholangitis and underwent stent drainage of pseudocyst of pancreas discussed with Radiology,for possible CT aspiration of ilio-psoas collections (? abscess) and did not think this is adequately drain the collection will transfer patient to tertiary facility - accepted by [facility] Objective - Results Result Diagrams: 07/15/17 00:43 07/15/17 00:43 Recent Labs: Laboratory Last Values WBC 14.1 Th/cmm (4.8-10.8) H 07/15/17 00:43 RBC 3.45 Mil/cmm (3.80-5.80) L 07/15/17 00:43 Hgb 10.2 gm/dL (12-16) L 07/15/17 00:43 Hct 30.4 % (41.0-60) L 07/15/17 00:43 MCV 88.1 fl (80-99) 07/15/17 00:43 MCH 29.7 pg (27.0-31.0) 07/15/17 00:43 MCHC Differential 33.7 pg (28.0-36.0) 07/15/17 00:43 RDW 15.3 % (11.5-20.0) 07/15/17 00:43 Plt Count 533 Th/cmm (150-400) H 07/15/17 00:43 MPV 6.9 fl 07/15/17 00:43 Neutrophils % 71.3 % (40.0-80.0) 07/13/17 23:30 Band Neutrophils % 7 % (0-10) 07/15/17 00:43 Lymphocytes % 11.3 % (20.0-50.0) L 07/13/17 23:30 Monocytes % 16.0 % (2.0-10.0) H 07/13/17 23:30 Eosinophils % 1.0 % (0.0-5.0) 07/13/17 23:30 Basophils % 0.4 % (0.0-2.0) 07/13/17 23:30 Neutrophils (Manual) 73 % (40-80) 07/15/17 00:43 Lymphocytes 11 % (20-50) L 07/15/17 00:43 Monocytes 7 % (2-10) 07/15/17 00:43 Eosinophils 2 % (0-5) 07/15/17 00:43 PT 12.4 SECONDS (9.5-11.5) H 07/13/17 23:30 INR 1.18 (0.5-1.4) 07/13/17 23:30 PTT (Actin FS) 36.6 SECONDS (26.0-38.0) 07/13/17 23:30 Sodium 130 mEq/L (136-145) L 07/15/17 00:43 Potassium 3.7 mEq/L (3.5-5.1) 07/15/17 00:43 Chloride 103 mEq/L (98-107) 07/15/17 00:43 Carbon Dioxide 20.1 mEq/L (21.0-31.0) L 07/15/17 00:43 Anion Gap 10.6 (7.0-16.0) 07/15/17 00:43 BUN 16 mg/dL (7-25) 07/15/17 00:43 Creatinine 0.5 mg/dL (0.7-1.3) L 07/15/17 00:43 Est GFR ( Amer) TNP 07/15/17 00:43 Est GFR (Non-Af Amer) TNP 07/15/17 00:43 BUN/Creatinine Ratio 32.0 07/15/17 00:43 Glucose 91 mg/dL (70-105) 07/15/17 00:43 POC Glucose 97 MG/DL (70 - 105) 07/15/17 16:42 Whole Bld Lactic Acid 2.19 mmol/L (0.60-1.99) H* 07/14/17 02:10 Calcium 8.1 mg/dL (8.6-10.3) L 07/15/17 00:43 Total Bilirubin 0.4 mg/dL (0.3-1.0) 07/13/17 23:30 AST 47 U/L (13-39) H 07/13/17 23:30 ALT 49 U/L (7-52) 07/13/17 23:30 Alkaline Phosphatase 149 U/L (34-104) H 07/13/17 23:30 Troponin I 0.02 ng/mL (0.01-0.05) 07/13/17 23:30 Total Protein 6.6 gm/dL (6.0-8.3) 07/13/17 23:30 Albumin 2.3 gm/dL (4.2-5.5) L 07/13/17 23:30 Globulin 4.3 gm/dL 07/13/17 23:30 Albumin/Globulin Ratio 0.5 (1.0-1.8) L 07/13/17 23:30 Triglycerides 93 mg/dL (<150) 07/15/17 00:43 Cholesterol 77 mg/dL (<200) 07/15/17 00:43 LDL Cholesterol Direct 46 mg/dL (75-193) L 07/15/17 00:43 HDL Cholesterol 15 mg/dL (23-92) L 07/15/17 00:43 TSH 0.89 uIU/ml (0.34-5.60) 07/15/17 00:43 Urine Source [place] 07/14/17 02:50 Urine Color RED 07/14/17 02:50 Urine Clarity CLOUDY (CLEAR) 07/14/17 02:50 Urine pH 7.0 (4.6 - 8.0) 07/14/17 02:50 Ur Specific [place] <= 1.005 (1.005-1.030) 07/14/17 02:50 Urine Protein TRACE mg/dL (NEGATIVE) 07/14/17 02:50 Urine Glucose (UA) NEGATIVE mg/dL (NEGATIVE) 07/14/17 02:50 Urine Ketones NEGATIVE mg/dL (NEGATIVE) 07/14/17 02:50 Urine Blood MODERATE (NEGATIVE) H 07/14/17 02:50 Urine Nitrate NEGATIVE (NEGATIVE) 07/14/17 02:50 Urine Bilirubin NEGATIVE (NEGATIVE) 07/14/17 02:50 Urine Urobilinogen 0.2 E.U./dL (0.2 - 1.0) 07/14/17 02:50 Ur Leukocyte Esterase NEGATIVE (NEGATIVE) 07/14/17 02:50 Urine RBC 50-100 /hpf (0-5) H 07/14/17 02:50 Urine WBC 0-2 /hpf (0-5) 07/14/17 02:50 Ur Epithelial Cells OCCASIONAL /lpf (FEW) 07/14/17 02:50 Urine Bacteria FEW /hpf (NONE SEEN) 07/14/17 02:50 Vancomycin Trough 11.5 ug/mL (5-10) H 07/15/17 11:45 - Physical Exam Vitals and I&O: Vital Signs Temp 97.2 F 07/15/17 16:00 Pulse 88 07/15/17 16:30 Resp 12 07/15/17 16:00 BP 152/81 07/15/17 16:30 Pulse Ox 100 07/15/17 16:00 Intake & Output 07/14/17 07/15/17 07/15/17 18:59 06:59 18:59 Intake Total 1612.00 2250 400 Output Total 450 Balance 1612.00 1800 400 Weight (lbs) 75.659 kg Intake: Intake, IV Amount 1612.00 2250 400 Amiodarone 450 mg In 259.00 Dextrose 5% 250 ml @ Titrate IV TITR [facility] Rx#: [id number] D5-0.9%Ns 1,000 ml @ 125 2000 mls/hr IV .Q8H [facility] Rx#: [id number] Levofloxacin 750mg/150mL 150 750 mg In 150 ml @ 100 mls/hr IV Q24HR [facility] Rx#: [id number] Vancomycin HCl 1 gm In 250 250 250 Sodium Chloride 0.9% 250 ml @ 165 mls/hr IV Q12H [facility] Rx#:[id number] Output: Urine 450 Other: # Voids 2 # Bowel Movements 0 Weight Source Bedscale Active Medications: Current Medications Acetaminophen (Tylenol) 650 mg PO Q6H PRN PRN Reason: HEADACHE/TEMP ABOVE 100F Stop: 09/12/17 01:29 Albuterol Sulfate (Albuterol 2.5mg/3ml Neb Ud) 2.5 mg HHN Q6HRT [facility] Stop: 09/12/17 06:59 Last Admin: 07/15/17 12:15 Dose: 2.5 mg Albuterol Sulfate (Albuterol 2.5mg/3ml Neb Ud) 2.5 mg HHN Q6HRT PRN PRN Reason: sob Stop: 09/12/17 06:59 Albuterol Sulfate (Albuterol 2.5mg/3ml Neb Ud) 1.25 mg HHN Q4HRT PRN PRN Reason: Shortness of Breath Stop: 09/13/17 07:21 Artificial Tears (Artificial Tears Ophth Soln) 1 drop EACH EYE TID [facility] Stop: 09/12/17 13:59 Last Admin: 07/15/17 14:12 Dose: 1 drop Ascorbic Acid (Vitamin C) 500 mg JT DAILY [facility] Stop: 09/13/17 08:59 Last Admin: 07/15/17 08:29 Dose: Not Given Calcium Carbonate (Calcium Carb) 600 mg PO DAILY [facility] Stop: 09/13/17 08:59 Last Admin: 07/15/17 08:29 Dose: Not Given Diltiazem HCl (Cardizem) 60 mg JT Q8H [facility] Stop: 09/12/17 11:44 Last Admin: 07/15/17 10:58 Dose: Not Given Docusate Sodium (Colace) 100 mg PO BID PRN PRN Reason: Constipation Stop: 09/12/17 01:30 Docusate Sodium (Colace) 100 mg PO BID PRN PRN Reason: Constipation Stop: 09/12/17 10:56 Ferrous Sulfate (Iron) 300 mg PO DAILY [facility] Stop: 09/13/17 08:59 Last Admin: 07/15/17 08:30 Dose: Not Given Hydralazine HCl (Apresoline) 25 mg JT Q6HR [facility] Stop: 09/12/17 11:59 Last Admin: 07/15/17 12:41 Dose: Not Given Levofloxacin (Levaquin Pb) 750 mg in 150 mls @ 100 mls/hr IV Q24HR [facility] Stop: 09/12/17 01:44 Last Infusion: 07/15/17 07:10 Dose: Infused Dextrose/Sodium Chloride (D5-0.9%Ns) 1,000 mls @ 125 mls/hr IV .Q8H [facility] Stop: 09/12/17 11:14 Last Admin: 07/15/17 12:36 Dose: 125 mls/hr Diltiazem HCl 125 mg/ Dextrose 125 mls @ 5 mls/hr IV TITR [facility]; 5 MG/HR PRN Reason: Protocol Stop: 09/13/17 01:59 Vancomycin HCl 1 gm/ Sodium (Chloride) 250 mls @ 165 mls/hr IV Q12H [facility] Stop: 09/13/17 20:59 Insulin Aspart (Novolog Insulin Sliding Scale) 0 units SUBQ ACHS [facility] PRN Reason: Protocol Stop: 09/12/17 11:29 Last Admin: 07/15/17 16:43 Dose: Not Given Ketorolac Tromethamine (Toradol) 30 mg IVP Q6HR PRN PRN Reason: Fever > 101 Stop: 09/12/17 10:56 Lactobacillus Rhamnosus (Culturelle 15b) 1 each PO DAILY [facility] Stop: 09/13/17 08:59 Last Admin: 07/15/17 08:30 Dose: Not Given Magnesium Hydroxide (Milk Of Magnesia) 30 ml JT DAILY [facility] Stop: 09/13/17 08:59 Last Admin: 07/15/17 08:30 Dose: Not Given Metoprolol Tartrate (Lopressor) 25 mg JT DAILY [facility] Stop: 09/13/17 08:59 Last Admin: 07/15/17 08:30 Dose: Not Given Metoprolol Tartrate (Lopressor) 5 mg IV Q4HR PRN PRN Reason: Tachycardia Stop: 09/13/17 02:19 Miscellaneous (Vancomycin Iv Per Pharmacy) 1 ea [facility] PRN PRN PRN Reason: PROTOCOL Stop: 09/12/17 10:55 Morphine Sulfate (Morphine) 2 mg IVP Q4HR PRN PRN Reason: Abdominal Pain Stop: 09/12/17 09:36 Last Admin: 07/14/17 10:00 Dose: 2 mg Ondansetron HCl (Zofran) 4 mg IVP Q6H PRN PRN Reason: Nausea / Vomiting Stop: 09/12/17 01:30 Ondansetron HCl (Zofran) 4 mg IVP Q6H PRN PRN Reason: Nausea / Vomiting Stop: 09/12/17 10:56 Potassium Chloride (Klor-Con) 40 meq PO DAILY PRN PRN Reason: k level less than 3.5 Stop: 09/12/17 10:56 Tramadol HCl (Ultram) 50 mg JT Q6HR PRN PRN Reason: Pain (Moderate) Stop: 09/12/17 11:05
--- NOTE | 2017-07-16 02:01 | Discharge Summary ---
DATE OF DISCHARGE: 07/15/2017 ADMITTING DIAGNOSES: Possible abdominal abscess 7.4 x 4 cm along the right iliac muscle, bilateral pleural effusions, small hiatal hernia, gallbladder with sludge, small pancreatic calcifications and pseudocyst. Right renal cyst 6.1 x 4 cm with right-sided hydronephrosis and right hydroureter, IVC filter, diverticulosis, SVT, vasomotor nephropathy, history of esophageal cancer and perforation. DISCHARGE DIAGNOSES: Possible abdominal abscess 7.4 x 4 cm along the right iliac muscle, bilateral pleural effusions, small hiatal hernia, gallbladder with sludge, small pancreatic calcifications and pseudocyst. Right renal cyst 6.1 x 4 cm with right-sided hydronephrosis and right hydroureter, IVC filter, diverticulosis, SVT, vasomotor nephropathy, history of esophageal cancer and perforation, sepsis. MEDICATIONS: Medications were reviewed and reconciled. VITAL SIGNS: 97.2, 81 pulse, 145/71, 16 respirations. DISPOSITION: Transferred to [place], [facility]. FOLLOWUP: Accepting physician upon arrival. PROCEDURES: None. COMPLICATIONS: None. CONDITION: Stable. DIET: Currently n.p.o. HISTORY OF PRESENT ILLNESS: This is an 81-year-old male who presented from came in with the complaint of abdominal pain, nausea and vomiting. The patient has a past medical history of dysphagia, pancreatic pseudocyst, gastroesophageal junction obstruction and was recently at [place] where he underwent an EGD to remove a Schatzki's ring and he had a CT-guided drainage of multiple pancreatic pseudocysts and removal of pancreatic mass. The patient in April was at [facility] with a diagnosis of a ruptured aortic aneurysm. He underwent endoscopic repair. He tolerated the procedure well and he has not had any complications, stemming from the surgery itself. Two months ago at [facility] he was found to have necrotizing pancreatitis. NG tube was placed at that time, his PEG tube was removed. NG tube was placed. The patient was placed on Peptamen tube feeds and tolerated tube feeds well. The patient was septic upon arrival. The patient had sepsis protocol initiated. At that time, he was placed in the ICU for stabilization. He was in SVT and was started on amiodarone drip. His home medication of diltiazem was restarted. The patient was able to have the amiodarone drip, continued and the patient was brought back to a controlled rate. A CT of the abdomen and pelvis was performed and revealed a possible right iliopsoas abscess. GI and General Surgery was consulted and recommended having the patient go to [facility] for possible surgical drainage or IR drainage of the right iliopsoas abscess. Earnestine Dennis has accepted the patient and will be discharged. JOB# [id number]
--- NOTE | 2017-07-16 10:03 | Progress Notes ---
DATE: 07/15/2017 SUBJECTIVE: The patient is resting comfortably in bed. Complains of intermittent abdominal pain with nausea; however, he denies vomiting at this time. Denies fevers and chills, feels like he has gotten a little weaker since he arrived to the hospital. Denies chest pain, shortness of breath, vomiting, dysuria, or falls. OBJECTIVE: VITAL SIGNS: 91 heart rate, blood pressure is 144/79, temperature is 97.6, and respiration rate is 18. GENERAL: NAD. HEENT: PERRLA, EOMI. NECK: Supple. Trachea midline. CARDIOVASCULAR: Regular rate and rhythm. RESPIRATORY: Decreased breath sounds bilaterally with normal air movement. No wheezing or rales. ABDOMEN: Soft, diffusely tender to palpation, nondistended, hypoactive bowel sounds. SKIN: Warm and dry. PSYCHIATRIC: No psychosis or hallucinations. LABORATORY DATA: White blood cell count is 14.1, hemoglobin is 10.2. Sodium is 130, creatinine is 0.5. UA was negative. ASSESSMENT: Possible abdominal abscess 7.4 x 4 along the right iliac muscle, bilateral pleural effusion, small hiatal hernia, gallbladder sludge, multiple pancreatic calcifications, pseudocyst, right renal cyst is 6.1 x 4 with severe right-sided hydronephrosis, hydroureter, IVC filter, diverticulosis, supraventricular tachycardia, possible atrial fibrillation versus atrial flutter, vasomotor nephropathy. The patient is currently in the ICU status post AAA repair. PLAN: The patient is currently in the ICU. Continue IV antibiotics for possible abscess. General surgery is following. Infectious Disease has been consulted. Urology has been consulted. Continue bronchodilators. The amiodarone drip was discontinued. The patient's heart rate is well controlled. Continue D5 normal saline. The patient was restarted on his home dose of Cardizem. Continue ferrous sulfate. Continue Levaquin and vancomycin for the possible abscess. JOB# [id number]
--- NOTE | 2017-07-17 16:40 | Cardiology ---
07/15/2017 ECHOCARDIOGRAM REPORT M-MODE ECHOCARDIOGRAM: Mitral valve, anterior leaflet of mitral valve shows normal excursion, EF velocity. Posterior leaflet of mitral valve shows normal excursion. Left ventricle posterior shows increased thickness, normal excursion. Interventricular septum shows increased thickness, normal excursion, hypertrophy of the left ventricle, ejection fraction 50%. Left atrium enlarged. Aortic root shows normal dimension, normal excursion of aortic leaflets. CONCLUSION: Left atrial enlargement. Hypertrophy of the left ventricle, ejection fraction 50%. 2D ECHO: Long axis view showed normal-sized left ventricle with hypertrophy of the left ventricle. Left atrium enlarged. Aortic root shows normal dimension, normal excursion of aortic leaflets. Short axis view of mitral valve normal. Short axis view of aortic valve normal. Apical four chamber view showed normal-sized left ventricle with hypertrophy of the left ventricle. Left atrium enlarged. Right ventricular cavity, right atrium normal, no pericardial effusion. CONCLUSION: Minimal hypertrophy of the left ventricle, ejection fraction 50%. Left atrial enlargement. Doppler study shows mild mitral regurgitation, mild tricuspid regurgitation, and mild aortic regurgitation. [facility]# [id number]
== END 2017-07-15 22:15 | DRG 393 ==
LOC: ER 23:05 → TELE 07-14 00:30 → ICU 07-14 07:29
PROVIDERS: ADMIT Family Medicine; ATTEND Family Medicine
DX: K94.23 Gastrostomy malfunction (principal); A41.9 Sepsis, unspecified organism; N17.0 Acute kidney failure with tubular necrosis; L02.211 Cutaneous abscess of abdominal wall; K86.3 Pseudocyst of pancreas; N13.30 Unspecified hydronephrosis; I47.1 Supraventricular tachycardia; E87.1 Hypo-osmolality and hyponatremia; K82.8 Other specified diseases of gallbladder; I48.91 Unspecified atrial fibrillation; I10 Essential (primary) hypertension; F03.90 Unspecified dementia, unspecified severity, without behavioral disturbance, psychotic disturbance, mood disturbance, and anxiety; Y83.8 Other surgical procedures as the cause of abnormal reaction of the patient, or of later complication, without mention of misadventure at the time of the procedure; K44.9 Diaphragmatic hernia without obstruction or gangrene; E86.0 Dehydration; D72.829 Elevated white blood cell count, unspecified; R13.10 Dysphagia, unspecified; K86.89 Other specified diseases of pancreas; N28.1 Cyst of kidney, acquired; K57.90 Diverticulosis of intestine, part unspecified, without perforation or abscess without bleeding; I71.4 Abdominal aortic aneurysm, without rupture; Z88.6 Allergy status to analgesic agent; Z88.0 Allergy status to penicillin; Z88.8 Allergy status to other drugs, medicaments and biological substances; Z86.73 Personal history of transient ischemic attack (TIA), and cerebral infarction without residual deficits; Z86.718 Personal history of other venous thrombosis and embolism; Y92.89 Other specified places as the place of occurrence of the external cause; Z86.711 Personal history of pulmonary embolism; Z79.899 Other long term (current) drug therapy; Z85.01 Personal history of malignant neoplasm of esophagus
CPT/HCPCS: 36415-UA; 71045-TC; 80048-TC; 80053-TC; 80061-TC; 80202-TC; 81001-TC; 82948-90; 83605; 84443-TC; 84484-TC; 85007-TC; 85025-TC; 85027-TC; 85610-TC; 85730-TC; 87086-90; 90779; 90799; 93005; 94760; 96374; 96379; J0153; J0282; J0696; J1160; J1815; J1956; J2405; J3370; J7030; J7042; J7613; Q9967; Z7610